=== PATIENT | male | born 1945 | race Caucasian/White ===

== ENCOUNTER → 2022-06-02 | Outpatient (CLI) | payer OTHER ==
[2022-06-02 14:28] LABS: HCT 44.3 % (39.6-50.0); HGB 14.1 g/dL (13.0-17.0); MCH 30.6 pg (27.0-32.0); MCHC 31.8 g/dL (32.0-37.0); MCV 96.1 fL (80.0-97.0); Mean Platelet Volume 10.9 fL (9.5-12.2); NRBC Per 100 WBC 0 /100 WBCS (0.0-0.0); Platelet Count 237 X 10*3/uL (140-440); RBC 4.61 X 10*6/uL (4.40-5.60); RDW 13.2 % (11.5-14.5); WBC 9.01 X 10*3/uL (4.50-10.00)
[2022-06-02 15:04] LABS: ALT 25 U/L (10-49); AST 25 U/L (14-35); African American GFR (CKD) 100.6 (60.0-200.0); Albumin 4.7 g/dL (3.8-4.9); Albumin/Globulin Ratio 1.86 (1.60-3.17); Alkaline Phosphatase 77 U/L (41-126); BUN/Creat Ratio 26.45 Ratio (12.00-20.00); Blood Urea Nitrogen 21.9 mg/dL (9.0-27.0); Calcium 9.5 mg/dL (8.7-10.3); Carbon Dioxide 26.9 mmol/L (20.0-27.5); Chloride 105 mmol/L (96-109); Chol/HDL Ratio 5.98 Ratio; Globulin 2.5 g/dL (1.6-3.3); Glucose 90 mg/dL (70-110); LDL Cholesterol,Calculated 150.8 mg/dL (0.0-131.0); Non-African American GFR(CKD) 86.8 (60.0-200.0); Potassium 4.3 mmol/L (3.5-5.5); Sodium 142 mmol/L (135-145); Total Protein 7.2 g/dL (6.2-8.2)
== END | disposition home or self-care (01) ==
LOC: LABWHC1 09:05
PROVIDERS: ATTEND Family Medicine
DX: Z00.01 Encounter for general adult medical examination with abnormal findings (principal); N40.1 Benign prostatic hyperplasia with lower urinary tract symptoms; E66.3 Overweight; R53.83 Other fatigue
CPT/HCPCS: 36415; 80053; 80061; 84153; 85027

== ENCOUNTER → 2022-08-19 | Outpatient (CLI) | payer MEDICARE ==
--- NOTE | 2022-08-19 14:46 | NM ---
EXAMINATION TYPE: NM stress cardiolite complete DATE OF EXAM: 08/19/2022 COMPARISON: NONE CLINICAL INDICATION: Male, 77 years old with history of R07.89; TECHNIQUE: After the intravenous administration of 9.7 mCi Tc 99m Sestamibi - Rest images obtained 4 5 minutes post injection. The patient exercised using a RADHA protocol and 1 minute prior to peak e xercise was injected with 24.9 mCi Tc 99m Sestamibi - Stress images obtained 25 minutes post injectio n. FINDINGS: Targeted heart rate was achieved during performance of the study. Review of stress and rest SPECT iliana ges demonstrates decreased perfusion involving the cardiac apex on stress images. Stress-induced isch emia is not excluded. Gated analysis shows normal wall motion with an estimated left ventricular ejec tion fraction of 62 %. IMPRESSION: decreased perfusion involving the cardiac apex on stress images. Stress-induced ischemia is not exclu ded.
--- NOTE | 2022-08-19 19:33 | CA ---
Exercise Nuclear Stress Test Report Name: Bonifacio Fischer Exam Date: 08/19/2022 10:06 Exam Location: [facility] Ht (in): 69 Wt (lb): 210 BSA: 2.11 Ordering Phys: Giorgio Gallegos MD Referring Phys: Hillary Restrepo PAC Technologist: Darnell Diaz Age: 77 Gender: M : 1945 Procedure CPT: Indications: R07.89 ICD-10 Codes: Patient History: Medications: Meds past 24 hrs: Pretest Chest Pain: STRESS TEST Sergio Protocol Exercise Duration (min:sec): 05:[address] Depressions (mm): Angina Score: Mejias Score: Resting HR (bpm): 63 Peak HR (bpm): 133 Resting BP (mmHg): 150 / 76 Peak BP (mmHg): 190 / 59 MPHR: 145 Target HR: 123 % MPHR: 92 METS: 7.1 Total Dose: Peak Dose: Atropine: Double Product: 71292 BP Response: Stress Termination: Reached target heart rate Stress Symptoms: no symptoms Stress Summary: The patient's target heart rate was achieved, The hemodynamic response to exercise was normal ECG ANALYSIS Resting ECG: Sinus rhythm. Normal conduction. Nonspecific ST-T abnormality. Stress ECG: No ECG evidence of ischemia with exercise. CONCLUSIONS 1. Good exercise tolerance 2. Nondiagnostic EKG stress testing 3. Nuclear images will be reported separately Dr. Keyonna Cortez MD (Electronically Signed) Final Date: 19 August 2022 19:32
== END | disposition home or self-care (01) ==
LOC: RADNMMAIN 07:45
PROVIDERS: ATTEND Family Medicine
DX: R07.89 Other chest pain (principal)
CPT/HCPCS: 93017; 78452; A9500